=== PATIENT | female | born 1945 | race Caucasian/White ===

== ENCOUNTER 2017-12-25 18:45 | Inpatient (IN) | payer MEDICARE ==
[~2017-12-25] VITALS: Ht 160 cm; Wt 46.0 kg
[~2017-12-25 18:45] MED LIST: ASPI-1197 PO; BISA5TAB12 PO; METH10TA2 PO; MIRT30TA6 PO
[2017-12-25] MEDS ORDERED: HYDROMORPHONE 1 MG/1 ML AMP ONE ×2 (19:38→21:09)
[2017-12-25] MEDS ORDERED: ONDANSETRON HCL MDV 20ML 2 MG/ML VIAL ONE (19:39)
[2017-12-25 19:50] LABS: BASOPHILS % (AUTO) 0.4 % (0.0-5.0); EOSINOPHILS % (AUTO) 0.2 % (0.0-8.0); HEMATOCRIT 34.5 % (36-48); LYMPHOCYTES % (AUTO) 9.7 % (21.0-51.0); MEAN CORPUSCULAR HEMOGLOBIN 31.1 pg (27.0-33.0); MEAN CORPUSCULAR HGB CONC 33.5 g/dL (32.0-36.0); MEAN CORPUSCULAR VOLUME 92.7 fL (79-99); MONOCYTES % (AUTO) 4.6 % (3.0-13.0); NEUTROPHILS % (AUTO) 85.1 % (40.0-77.0); PLATELET COUNT (AUTO) 213 K/uL (130-400); RED BLOOD CELL COUNT(AUTO) 3.72 MIL/uL (4.00-5.50); RED CELL DISTRIBUTION WIDTH 13.3 % (11.0-15.5); WHITE BLOOD COUNT (AUTO) 12.8 K/uL (4.8-10.8)
[2017-12-25 20:12] LABS: CREATININE 0.8 mg/dL (0.5-1.5); INR 0.95 (0.85-1.15); PARTIAL THROMBOPLASTIN TIME 27.2 SEC (26.3-35.5); POTASSIUM 3.4 mmol/L (3.5-5.1)
[2017-12-25 20:25] LABS: ALBUMIN 3.9 g/dL (3.5-5.0); BILIRUBIN,TOTAL 0.4 mg/dL (0.2-1.0); CREATINE KINASE MB 3.7 ng/mL (0.5-3.6); TOTAL PROTEIN, SERUM 7.9 g/dL (6.0-8.3)
[2017-12-25] MEDS ORDERED: LIDOCAINE HCL 2% JELLY 5 ML ONE (21:04)
[2017-12-25 21:50] LABS: APPEARANCE,URINE CLEAR (CLEAR); BILIRUBIN,URINE NEGATIVE (NEGATIVE); COLOR,URINE GREEN (YELLOW); GLUCOSE, URINE (UA) NEGATIVE (NEGATIVE); KETONES,URINE NEGATIVE (NEGATIVE); LEUKOCYTE ESTERASE ,URINE TRACE (NEGATIVE); NITRATE,URINE NEGATIVE (NEGATIVE); OCCULT BLOOD,URINE NEGATIVE (NEGATIVE); PH,URINE 5.5 (5.0-8.0); PROTEIN,URINE TRACE (NEGATIVE); UROBILINOGEN,URINE 0.2 mg/dL (0.2-1.0)
[2017-12-25 22:08] LABS: BACTERIA,URINE Few /HPF (None Seen); MUCUS,URINE Few LPF (None Seen); RBC,URINE 0-1 /HPF (0-1); SQUAMOUS EPITHELIAL CELL,UR Few /HPF (0-2); WBC,URINE 0-1 /HPF (0-1)
[2017-12-25 22:09] LABS: HYALINE CASTS, URINE 0-1 /LPF (0-1 /LPF)
[2017-12-26] MEDS ORDERED: MORPHINE SULFATE 4 MG/1ML SYG ONE ×3 (00:01→07:55)
[2017-12-26 01:05] VITALS: BP 151/81
[2017-12-26] MEDS ORDERED: METH5TAB2 PO (01:49)
[2017-12-26] MEDS ORDERED: MORPHINE SULFATE 2 MG/ML 1ML SYG IVP PRN (03:30)
[2017-12-26 03:58] VITALS: BP 136/72
[2017-12-26 07:28] LABS: BASOPHILS % (AUTO) 0.6 % (0.0-5.0); EOSINOPHILS % (AUTO) 0.6 % (0.0-8.0); HEMATOCRIT 34.5 % (36-48); MEAN CORPUSCULAR HEMOGLOBIN 32.4 pg (27.0-33.0); MEAN CORPUSCULAR HGB CONC 34.9 g/dL (32.0-36.0); MEAN CORPUSCULAR VOLUME 92.9 fL (79-99); MONOCYTES % (AUTO) 6.8 % (3.0-13.0); PLATELET COUNT (AUTO) 219 K/uL (130-400); RED BLOOD CELL COUNT(AUTO) 3.71 MIL/uL (4.00-5.50); RED CELL DISTRIBUTION WIDTH 13.3 % (11.0-15.5)
[2017-12-26 07:40] LABS: CREATININE 0.8 mg/dL (0.5-1.5); POTASSIUM 3.8 mmol/L (3.5-5.1)
[2017-12-26 08:00] VITALS: BP 141/86
[2017-12-26] MEDS ORDERED: PANTOPRAZOLE SODIUM 40 MG TABLET.DR PO SCH (09:00)
[2017-12-26] MEDS ORDERED: HYDROMORPHONE HCL 2 MG/ML VIAL IVP PRN (10:00)
[2017-12-26] MEDS: SODIUM CHLORIDE 0.9% 1000ML 1,000 ML IV SCH ×2 (10:50→22:56)
[2017-12-26] MEDS: HYDROMORPHONE 1 MG/1 ML AMP IVP PRN ×5 (10:50→22:57)
[2017-12-26 12:00] VITALS: BP 133/70
[2017-12-26] MEDS: METHADONE HCL 10 MG TABLET PO SCH ×2 (12:00→21:00)
[2017-12-26 15:56] VITALS: BP 123/71
[2017-12-26 19:31] VITALS: BP 141/87
[2017-12-26] MEDS: ONDANSETRON HCL MDV 20ML 2 MG/ML VIAL IVP PRN (20:02)
[2017-12-26] MEDS: MIRTAZAPINE 15 MG TABLET PO SCH (21:00)
[2017-12-26] MEDS ORDERED: METHADONE HCL 5 MG TABLET PO SCH (21:00)
[2017-12-27] MEDS: PROMETHAZINE HCL 25 MG/ML 1ML AMPULE IM PRN ×3 (02:00→18:00)
[2017-12-27] MEDS: HYDROMORPHONE 1 MG/1 ML AMP IVP PRN ×5 (02:00→15:18)
[2017-12-27 03:24] VITALS: BP 120/78
[2017-12-27 07:06] LABS: HEMATOCRIT 34.3 % (36-48); MEAN CORPUSCULAR HEMOGLOBIN 32.1 pg (27.0-33.0); MEAN CORPUSCULAR HGB CONC 34.4 g/dL (32.0-36.0); MEAN CORPUSCULAR VOLUME 93.3 fL (79-99); PLATELET COUNT (AUTO) 186 K/uL (130-400); RED BLOOD CELL COUNT(AUTO) 3.67 MIL/uL (4.00-5.50); RED CELL DISTRIBUTION WIDTH 13.4 % (11.0-15.5); WHITE BLOOD COUNT (AUTO) 6.9 K/uL (4.8-10.8)
[2017-12-27 07:18] LABS: CREATININE 0.8 mg/dL (0.5-1.5); POTASSIUM 4.2 mmol/L (3.5-5.1)
[2017-12-27 07:34] LABS: BASOPHILS % (MANUAL) 1 % (0-2); EOSINOPHILS % (MANUAL) 1 % (1-6); LYMPHOCYTES % (MANUAL) 15 % (22-44); MAN.DIFF COMMENT-IMPRESSION MANUAL DIFFERENTIAL; MONOCYTES % (MANUAL) 4 % (2-9); PLATELET MORPHOLOGY COMMENT ADEQUATE; SEGMENTED NEUTROPHILS % 79 % (40-70)
[2017-12-27 08:00] VITALS: BP 113/62
[2017-12-27] MEDS: ONDANSETRON HCL MDV 20ML 2 MG/ML VIAL IVP PRN (08:27)
[2017-12-27] MEDS ORDERED: PANTOPRAZOLE SODIUM 40 MG TABLET.DR PO SCH (09:00)
[2017-12-27] MEDS: METHADONE HCL 10 MG TABLET PO SCH ×3 (09:00→20:54)
[2017-12-27] MEDS: FAMOTIDINE/PF 20 MG/2 ML VIAL IV SCH ×2 (10:00→20:55)
[2017-12-27 12:00] VITALS: BP 120/69
[2017-12-27] MEDS: SODIUM CHLORIDE 0.9% 1000ML 1,000 ML IV SCH (13:07)
[2017-12-27 16:00] VITALS: BP 130/64
[2017-12-27 19:50] VITALS: BP 107/66
[2017-12-27] MEDS: MIRTAZAPINE 15 MG TABLET PO SCH (20:54)
[2017-12-27 23:41] VITALS: BP 128/73
[2017-12-28] MEDS: SODIUM CHLORIDE 0.9% 1000ML 1,000 ML IV SCH (02:12)
[2017-12-28 03:15] VITALS: BP 119/67
[2017-12-28 08:00] VITALS: BP 125/72
[2017-12-28] MEDS: METHADONE HCL 10 MG TABLET PO SCH ×2 (09:00→12:17)
[2017-12-28 12:00] VITALS: BP 123/71
[2017-12-28] MEDS: FAMOTIDINE/PF 20 MG/2 ML VIAL IV SCH (12:11)
== END 2017-12-28 17:37 | disposition home or self-care (01) | DRG 389 ==
LOC: EDH 18:45 → EDHIP 22:18 → 3DH 12-26 00:01
PROVIDERS: ADMIT Family Medicine; ATTEND Family Medicine
PROC: 0DH673Z Insertion of Infusion Device into Stomach, Via Natural or Artificial Opening (ICD-10-PCS; principal; 2017-12-26)
DX: K56.609 Unspecified intestinal obstruction, unspecified as to partial versus complete obstruction (principal); E44.1 Mild protein-calorie malnutrition; Z68.1 Body mass index [BMI] 19.9 or less, adult; E86.0 Dehydration; G89.4 Chronic pain syndrome; Z88.0 Allergy status to penicillin; Z91.040 Latex allergy status
CPT/HCPCS: 36415; 71045; 74021; 74176; 80048; 80053; 81001; 82150; 82550; 82553; 84484; 85025; 85610; 85730; 93005; C9113; J1170; J2270; J2550; J3490; J7030

== ENCOUNTER 2021-08-23 16:13 | Inpatient (IN) | payer MEDICARE ==
[~2021-08-23] VITALS: Ht 157.5 cm; Wt 39.9 kg
[~2021-08-23 16:13] MED LIST changes: -ASPI-1197 PO; -BISA5TAB12 PO; +LUBI8CAP PO; +METH-822 PO; -METH10TA2 PO; -MIRT30TA6 PO; +TEMA15CA PO
[2021-08-23 20:26] LABS: BASOPHILS % (AUTO) 1.3 % (0.0-5.0); EOSINOPHILS % (AUTO) 1.8 % (0.0-8.0); HEMATOCRIT 40.9 % (36-48); LYMPHOCYTES % (AUTO) 37.2 % (21.0-51.0); MEAN CORPUSCULAR HGB CONC 31.8 g/dL (32.0-36.0); MEAN CORPUSCULAR VOLUME 94.2 fL (79-99); MONOCYTES % (AUTO) 7.6 % (3.0-13.0); NEUTROPHILS % (AUTO) 51.8 % (40.0-77.0); PLATELET COUNT (AUTO) 248 K/uL (130-400); RED BLOOD CELL COUNT(AUTO) 4.34 MIL/uL (4.00-5.50); RED CELL DISTRIBUTION WIDTH 12.1 % (11.0-15.5); WHITE BLOOD COUNT (AUTO) 6.7 K/uL (4.8-10.8)
[2021-08-23 20:33] LABS: CREATININE 0.7 mg/dL (0.5-1.5); POTASSIUM 5.7 mmol/L (3.5-5.1)
[2021-08-23] MEDS ORDERED: 0.9%NACL 1000ML 1,000 ML IV SCH (22:30)
[2021-08-23] MEDS ORDERED: FENTANYL CITRATE PF 50 MCG/1 ML 2ML VIAL IVP ONE (22:30)
[2021-08-23] MEDS ORDERED: ONDANSETRON 4MG TABLET PO PRN (23:00)
[2021-08-23] MEDS ORDERED: ACETAMINOPHEN 325 MG TAB PO PRN ×2 (23:00)
[2021-08-24 01:20] VITALS: BP 121/73
[2021-08-24] MEDS ORDERED: METH-822 PO (01:50)
[2021-08-24] MEDS ORDERED: ONDA-104 PO (01:50)
[2021-08-24] MEDS: MORPHINE 2 MG SYG IVP PRN ×4 (02:11→23:44)
[2021-08-24 04:24] VITALS: BP 131/70
[2021-08-24] MEDS ORDERED: KETOROLAC 30MG VIAL (30MG/ML) ONE (06:11)
[2021-08-24] MEDS ORDERED: KETOROLAC 30MG VIAL (30MG/ML) IM SCH (06:30)
[2021-08-24 08:30] VITALS: BP 122/64
[2021-08-24 11:35] VITALS: BP 118/59
[2021-08-24] MEDS: ENOXAPARIN SODIUM 30 MG/0.3 ML SQ SCH (12:39)
[2021-08-24 16:00] VITALS: BP 120/70
[2021-08-24 20:00] VITALS: BP 123/70
[2021-08-25] VITALS (7 sets, daily range): BP systolic 112–139; BP diastolic 64–74
[2021-08-25] MEDS: ENOXAPARIN SODIUM 30 MG/0.3 ML SQ SCH (08:47)
[2021-08-25] MEDS: MORPHINE 2 MG SYG IVP PRN ×2 (08:47→18:50)
[2021-08-26] MEDS: MORPHINE 2 MG SYG IVP PRN ×2 (01:54→09:53)
[2021-08-26 03:47] VITALS: BP 114/63
[2021-08-26 04:10] LABS: HEMATOCRIT 33.1 % (36-48); MEAN CORPUSCULAR HEMOGLOBIN 30.4 pg (27.0-33.0); MEAN CORPUSCULAR VOLUME 94.8 fL (79-99); RED BLOOD CELL COUNT(AUTO) 3.49 MIL/uL (4.00-5.50); WHITE BLOOD COUNT (AUTO) 4.8 K/uL (4.8-10.8)
[2021-08-26 04:36] LABS: CREATININE 0.8 mg/dL (0.5-1.5); MAGNESIUM 1.9 mg/dL (1.80-2.40); POTASSIUM 4.7 mmol/L (3.5-5.1)
[2021-08-26 07:44] VITALS: BP 132/71
[2021-08-26] MEDS: ENOXAPARIN SODIUM 30 MG/0.3 ML SQ SCH (09:51)
[2021-08-26 10:57] VITALS: BP 103/60
[2021-08-26 15:38] VITALS: BP 110/58
== END 2021-08-26 20:30 | disposition home or self-care (01) | DRG 563 ==
LOC: EDH 16:13 → EDHIP 22:40 → 4AH 08-24 00:59
PROVIDERS: ADMIT Internal Medicine Infectious Disease; ATTEND Internal Medicine Infectious Disease
PROC: 2W3MX1Z Immobilization of Left Lower Extremity using Splint (ICD-10-PCS; principal; 2021-08-24)
DX: S92.402A Displaced unspecified fracture of left great toe, initial encounter for closed fracture (principal); S32.592A Other specified fracture of left pubis, initial encounter for closed fracture; S52.002A Unspecified fracture of upper end of left ulna, initial encounter for closed fracture; M19.90 Unspecified osteoarthritis, unspecified site; E87.5 Hyperkalemia; R29.6 Repeated falls; Z96.653 Presence of artificial knee joint, bilateral; Z96.642 Presence of left artificial hip joint; Z60.2 Problems related to living alone; R53.81 Other malaise; G89.29 Other chronic pain; W01.0XXA Fall on same level from slipping, tripping and stumbling without subsequent striking against object, initial encounter; Y93.89 Activity, other specified; Y92.89 Other specified places as the place of occurrence of the external cause; Y99.8 Other external cause status; Z88.0 Allergy status to penicillin; Z91.040 Latex allergy status; Z98.82 Breast implant status; Z85.89 Personal history of malignant neoplasm of other organs and systems
CPT/HCPCS: 36415; 72131; 73070; 73660; 74176; 80048; 83735; 85025; 85027; 97039; G0378; J1650; J1885; J3010; Q0162

== ENCOUNTER 2021-12-30 18:16 | Inpatient (IN) | payer MEDICARE ==
[~2021-12-30] VITALS: Ht 154.9 cm; Wt 38.4 kg
[~2021-12-30 18:16] MED LIST changes: -LUBI8CAP PO; +ONDA-104 PO; -TEMA15CA PO
[2021-12-30 18:38] LABS: BASOPHILS % (AUTO) 0.4 % (0.0-5.0); HEMATOCRIT 35.7 % (36-48); LYMPHOCYTES % (AUTO) 9.9 % (21.0-51.0); MEAN CORPUSCULAR HEMOGLOBIN 29.9 pg (27.0-33.0); MEAN CORPUSCULAR HGB CONC 33.1 g/dL (32.0-36.0); MEAN CORPUSCULAR VOLUME 90.6 fL (79-99); MONOCYTES % (AUTO) 6.2 % (3.0-13.0); NEUTROPHILS % (AUTO) 83.1 % (40.0-77.0); PLATELET COUNT (AUTO) 194 K/uL (130-400); RED BLOOD CELL COUNT(AUTO) 3.94 MIL/uL (4.00-5.50); RED CELL DISTRIBUTION WIDTH 13.2 % (11.0-15.5); WHITE BLOOD COUNT (AUTO) 11.9 K/uL (4.8-10.8)
[2021-12-30 18:57] LABS: CREATININE 0.8 mg/dL (0.5-1.5); POTASSIUM 3.9 mmol/L (3.5-5.1)
[2021-12-30 19:01] LABS: ALBUMIN 4.2 g/dL (3.5-5.0); BILIRUBIN,TOTAL 1.3 mg/dL (0.2-1.0); TOTAL PROTEIN, SERUM 7.7 g/dL (6.0-8.3)
[2021-12-30] MEDS ORDERED: BISACODYL 10 MG SUPP.RECT RC ONE (20:30)
[2021-12-30] MEDS ORDERED: MORPHINE 4 MG SYG IM ONE (20:30)
[2021-12-30 22:28] LABS: APPEARANCE,URINE Turbid (CLEAR); BILIRUBIN,URINE Negative (NEGATIVE); COLOR,URINE Yellow (YELLOW); GLUCOSE, URINE (UA) Negative (NEGATIVE); KETONES,URINE Negative (NEGATIVE); LEUKOCYTE ESTERASE ,URINE Large (NEGATIVE); NITRATE,URINE Negative (NEGATIVE); OCCULT BLOOD,URINE Moderate (NEGATIVE); PROTEIN,URINE POS 2+ mg/dL (NEGATIVE)
[2021-12-30 22:56] LABS: AMORPHOUS SEDIMENT,UR Many /LPF (None Seen); BACTERIA,URINE Moderate /HPF (None Seen); CALCIUM OXALATE CRYSTALS,UR Few /LPF (None Seen); MUCUS,URINE Rare LPF (None Seen); RBC,URINE 0-1 /HPF (0-1); RENAL EPITHELIAL CELLS,URINE Few /HPF (None Seen); SQUAMOUS EPITHELIAL CELL,UR Few /HPF (0-2); YEAST,URINE BUDDING Few /HPF (None Seen)
[2021-12-30] MEDS ORDERED: MORPHINE 2 MG SYG IVP ONE (23:00)
[2021-12-31] MEDS ORDERED: CEFTRIAXONE 1G VIAL IVP ONE
[2021-12-31] MEDS ORDERED: LEVOFLOXACIN 500 MG/D5W 100 ML 100 ML IV SCH
[2021-12-31] MEDS: LACTULOSE 20 GM/30 ML UDCUP PO SCH ×5 (00:30→23:58)
[2021-12-31] MEDS ORDERED: ONDANSETRON 4MG INJ IVP PRN (00:30)
[2021-12-31] MEDS ORDERED: ACETAMINOPHEN 325 MG TAB PO PRN (00:30)
[2021-12-31] MEDS ORDERED: PHARMACY COMMUNICATION MISC SCH ×3 (01:00→07:30)
[2021-12-31] MEDS: CEFTRIAXONE 1G VIAL IVP SCH ×2 (05:23→23:58)
[2021-12-31] MEDS ORDERED: NAPR220C15 PO (06:22)
[2021-12-31 08:00] VITALS: BP 89/56
[2021-12-31] MEDS ORDERED: NAPROXEN 250 MG TAB PO PRN (08:00)
[2021-12-31] MEDS: ENOXAPARIN SODIUM 30 MG/0.3 ML SQ SCH (08:37)
[2021-12-31 11:30] VITALS: BP 114/63
[2021-12-31] MEDS: MORPHINE 2 MG SYG IVP PRN ×2 (12:28→18:16)
[2021-12-31 15:30] VITALS: BP 117/63
[2021-12-31 19:20] VITALS: BP 102/53
[2021-12-31 23:28] VITALS: BP 107/60
[2022-01-01] MEDS: MORPHINE 2 MG SYG IVP PRN ×3 (00:03→12:37)
[2022-01-01 04:59] VITALS: BP 126/69
[2022-01-01 05:14] LABS: BASOPHILS % (AUTO) 0.8 % (0.0-5.0); EOSINOPHILS % (AUTO) 0.6 % (0.0-8.0); HEMATOCRIT 35.3 % (36-48); LYMPHOCYTES % (AUTO) 38.3 % (21.0-51.0); MEAN CORPUSCULAR HEMOGLOBIN 29.7 pg (27.0-33.0); MEAN CORPUSCULAR HGB CONC 32.9 g/dL (32.0-36.0); MEAN CORPUSCULAR VOLUME 90.5 fL (79-99); MONOCYTES % (AUTO) 6.7 % (3.0-13.0); NEUTROPHILS % (AUTO) 53.4 % (40.0-77.0); PLATELET COUNT (AUTO) 153 K/uL (130-400); RED CELL DISTRIBUTION WIDTH 13.4 % (11.0-15.5); WHITE BLOOD COUNT (AUTO) 5.1 K/uL (4.8-10.8)
[2022-01-01 05:25] LABS: CREATININE 0.7 mg/dL (0.5-1.5); MAGNESIUM 1.9 mg/dL (1.80-2.40); POTASSIUM 3.5 mmol/L (3.5-5.1)
[2022-01-01] MEDS: LACTULOSE 20 GM/30 ML UDCUP PO SCH ×2 (06:00→12:36)
[2022-01-01 08:00] VITALS: BP 114/60
[2022-01-01] MEDS: ENOXAPARIN SODIUM 30 MG/0.3 ML SQ SCH ×2 (09:00→10:40)
[2022-01-01 12:00] VITALS: BP 105/72
[2022-01-01 16:00] VITALS: BP 103/67
== END 2022-01-02 01:54 | disposition home or self-care (01) | DRG 690 ==
LOC: EDH 18:16 → OBSVTOIN 12-31 00:09 → EDHIP 12-31 00:09 → 3CH 12-31 05:28
PROVIDERS: ADMIT Internal Medicine Infectious Disease; ATTEND Internal Medicine Infectious Disease
DX: N39.0 Urinary tract infection, site not specified (principal); K59.00 Constipation, unspecified; E86.0 Dehydration; G89.29 Other chronic pain; M19.90 Unspecified osteoarthritis, unspecified site; Z98.82 Breast implant status; Z96.643 Presence of artificial hip joint, bilateral; B95.1 Streptococcus, group B, as the cause of diseases classified elsewhere; R54 Age-related physical debility; Z88.0 Allergy status to penicillin; Z91.040 Latex allergy status
CPT/HCPCS: 36415; 74176; 80048; 80053; 81001; 82270; 83690; 83735; 85025; 87088; 93971; G0378; J0696; J1650; J1956; J2270

== ENCOUNTER → 2023-02-10 | Outpatient (CLI) | payer MEDICARE ==
[~2023-02-10] MED LIST changes: +NAPR220C15 PO; -ONDA-104 PO
[2023-02-10 13:58] LABS: CREATININE 0.7 mg/dL (0.5-1.5)
== END | disposition home or self-care (01) ==
LOC: LAB 12:03
PROVIDERS: ATTEND Internal Medicine
DX: R12 Heartburn (principal); R10.9 Unspecified abdominal pain
CPT/HCPCS: 82565; 84520

== ENCOUNTER → 2023-08-07 | Outpatient (CLI) | payer MEDICARE | END | disposition home or self-care (01) | LOC: RAH 13:19 | PROVIDERS: ATTEND Internal Medicine Cardiovascular Disease | DX: I08.0 Rheumatic disorders of both mitral and aortic valves (principal); R01.1 Cardiac murmur, unspecified | CPT/HCPCS: 93306 ==

== ENCOUNTER 2024-07-16 18:20 | Emergency (ER) | payer MEDICARE ==
[~2024-07-16] VITALS: Ht 160 cm; Wt 49.9 kg
[~2024-07-16 18:20] MED LIST changes: +CYCL5TAB PO; +LEVO50TA11 PO; +METH10 PO; +ONDA-104 PO; +OXYB10TA30 PO
[2024-07-16 23:36] VITALS: BP 150/80; PULSE 87; RESP 20; TEMP 98.6; O2SAT 92
== END 2024-07-17 01:08 | disposition home or self-care (01) ==
LOC: EDH 18:20
DX: S00.03XA Contusion of scalp, initial encounter (principal); Z79.899 Other long term (current) drug therapy; Z79.890 Hormone replacement therapy; Z88.0 Allergy status to penicillin; W18.39XA Other fall on same level, initial encounter; Y93.89 Activity, other specified; Y92.89 Other specified places as the place of occurrence of the external cause; Y99.8 Other external cause status
CPT/HCPCS: 70450; 72125

== ENCOUNTER 2025-08-04 13:03 | Inpatient (IN) | payer MEDICARE ==
[~2025-08-04] VITALS: Ht 152.4 cm; Wt 32.7 kg
[~2025-08-04 13:03] MED LIST changes: -CYCL5TAB PO; +CYCL5TAB3 PO
--- NOTE | 2025-08-04 13:24 | NUR ---
EMS PUT PATIENT IN ER13 AND LEFT WITHOUT GIVING REPORT. PATIENT CARE ASSUMED AT THIS TIME.
[2025-08-04 13:30] LABS: IMMATURE GRANULOCYTE ABSOLUTE 0.02 K/uL (0-1); NUCLEATED RED BLOOD CELLS 0.0 % (0.0-0.19); PLATELET COUNT (AUTO) 185 K/uL (130-400); RED BLOOD CELL COUNT(AUTO) 3.92 MIL/uL (4.00-5.50); RED CELL DISTRIBUTION WIDTH 12.5 % (11.0-15.5); WHITE BLOOD COUNT (AUTO) 10.8 K/uL (4.8-10.8)
[2025-08-04 13:49] LABS: CREATININE 0.6 mg/dL (0.5-1.0); GLOMERULAR FILTR. RATE CALC 91.0 mL/min (>90); GLUCOSE,RANDOM 113.0 mg/dL (70-105); SODIUM SERUM 141.0 mmol/L (136-145); UREA NITROGEN, BLOOD 22.0 mg/dL (7-18)
--- NOTE | 2025-08-04 14:02 | ERN ---
General Chief Complaint: Abdominal Pain Stated Complaint: ABDOMINAL PAIN Time Seen by MD: 13:05 Source: patient History of Present Illness Initial Comments This is a 79-year-old female patient with past medical history of pneumonia, small bowel obstruction, and osteoarthritis, presented to the Emergency Room with 1-day history of nausea, vomiting, and abdominal pain. Pain localized to the lower quadrant. The patient claims she had multiple episodes of emesis yesterday. No fever or chills. The patient has history of recurrent small bowel obstruction. Allergies: Coded Allergies: latex (Unverified Allergy, Unknown, RASH, 03/27/15) penicillin (Unverified Allergy, Unknown, RASH, 03/27/15) Home Meds Reported Medications Cyclobenzaprine HCl (Cyclobenzaprine HCl) 5 Mg Tablet, 1 TAB PO HS 07/12/24 Oxybutynin Chloride (Oxybutynin Chloride ER) 10 Mg Tab.er.24, 1 TAB PO DAILY for bladder control 07/12/24 Levothyroxine Sodium (Levothyroxine Sodium) 50 Mcg Tablet, 1 TAB PO DAILY 07/12/24 Ondansetron HCl (Ondansetron HCl) 4 Mg Tablet, 2 TAB PO BID 07/12/24 Methadone HCl (Dolophine) 10 Mg Tab, 1 TAB PO Q4H for pain 07/12/24 Naproxen Sodium (Aleve) 220 Mg Capsule, 220 MG PO Q4HPRN PRN for PAIN LEVEL 1 TO 3, CAP 12/31/21 Methadone HCl (Methadone HCl) 10 Mg Tablet, 20 MG PO TID, TAB 08/24/21 Past Medical History Past Medical History: Other Medical History Other: BOWEL OBSTRUCTIONS Past Surgical History: Other Surgical History Other: ABD PAIN Social History Social History: Negative, Lives alone Female( History) History: Not Applicable ROS Dictation CONSTITUTIONAL: NO CHILLS, NO FEVER, NO WEAKNESS, NO DIAPHORESIS, NO MALAISE. HEAD/FACE: NO SIGNS OF TRAUMA. EENT: NO EYE PAIN, NO BLURRED VISION, NO TEARING, NO DOUBLE VISION, NO EAR PAIN, NO EAR DISCHARGE, NO NOSE PAIN, NO NASAL CONGESTION, NO THROAT PAIN, NO THROAT SWELLING, NO MOUTH PAIN. RESPIRATORY: NO COUGH, NO ORTHOPNEA, NO SOB, NO STRIDOR, NO WHEEZING. CARDIOVASCULAR: NO CHEST PAIN, NO EDEMA, NO PALPITATIONS, NO SYNCOPE. GASTROINTESTINAL/ABDOMINAL: ABDOMINAL PAIN, CONSTIPATION, NO DIARRHEA, NO NAUSEA, NO VOMITING. GENITOURINARY: NO ABNORMAL DISCHARGE, NO DYSURIA, NO FREQUENT URINATION, NO HEMATURIA. NO COMPLAINTS OF PAIN IN THE GENITALS. MUSCULOSKELETAL: NO BACK PAIN, NO GOUT, NO JOINT PAIN, NO JOINT SWELLING, NO MUSCLE PAIN, NO MUSCLE STIFFNESS, NO NECK PAIN. INTEGUMENTARY: NO CHANGE IN COLOR, NO CHANGE IN HAIR/NAILS, NO DRYNESS, NO LESION, NO LUMPS, NO RASH. NEUROLOGICAL/PSYCH: NO ANXIETY, NOT DEPRESSED, NO EMOTIONAL PROBLEM, NO HEADACHE, NO NUMBNESS, NO PRE-EXISTING DEFICIT, NO HISTORY OF SEIZURES, NO TREMORS, NO WEAKNESS. HEMATOLOGIC/LYMPHATIC: NOT ANEMIC, NO HISTORY OF BLOOD CLOTS, NO APPARENT BLEEDING, NO BRUISING, GLANDS NOT SWOLLEN. ALL SYSTEMS NEGATIVE, EXCEPT NOTED. Physical Exam Physical Exam Dictation VITAL SIGNS: REVIEWED. GENERAL APPEARANCE: ALERT, ORIENTED X3, NO ACUTE DISTRESS, OBESE. HEAD AND FACE: NON-TRAUMATIC. EYES: PERRL, PINK CONJUNCTIVAS, EYELID NO TRAUMA, ANTERIOR CHAMBER CLEAR. EARS: PINNAS INTACT AND NO SIGNS OF TRAUMA OR ERYTHEMA. EAR CANALS CLEAR AND NO DISCHARGE. TMS NO ERYTHEMA. NOSE: NO DISCHARGE, NO BLEEDING. OROPHARYNX: MOUTH NORMAL, TEETH NO CARIES, TONGUE PINK. PHARYNX CLEAR, NO ERYTHEMA. TONSILS NO EXUDATES, NO ABSCESSES NOTED. MUCOUS MEMBRANE MOIST. NECK: SUPPLE, NON-TENDER, NO THYROMEGALY, NO MASSES, NO JVD, NO BRUITS. BREAST: DEFERRED. CHEST: NO TENDERNESS, NO CREPITUS, NO PARADOXICAL MOVEMENT, NO RETRACTIONS. LUNGS: CLEAR, WELL-VENTILATED, SYMMETRIC, NO RALES, NO WHEEZING, NO RHONCHI, NO STRIDOR, GOOD BREATH SOUNDS BILATERALLY. HEART: REGULAR RATE, REGULAR RHYTHM, NO MURMUR, NO GALLOPS. VASCULAR: NO PERIPHERAL EDEMA. ABDOMEN: SOFT, POSITIVE BOWEL SOUNDS, DISTENDED, NO GUARDING, NONTENDER, NO REBO UND, NO MASSES NO HEPATOMEGALY, NO SPLENOMEGALY, NO NUNN'S SIGN, NO HERNIAS. RECTAL: DEFERRED. GENITAL: DEFERRED. NEUROLOGICAL: NORMAL SPEECH, GROSS MOTOR FUNCTION INTACT, GROSS SENSORY FUNCTION INTACT. MUSCULOSKELETAL: NECK NONTENDER, FULL RANGE OF MOTION, BACK NONTENDER, FULL RANGE OF MOTION. EXTREMITIES: NONTENDER, FULL RANGE OF MOTION. SKIN: COLOR PINK, DRY, NO TURGOR, NO RASH, NO LACERATIONS, NO ABRASIONS, NO CONTUSIONS. LYMPHATICS: DEFERRED. Results Laboratory and Microbiology Lab and Micro Result Laboratory Tests Test 08/04/25 13:23 White Blood Count 10.8 K/uL (4.8-10.8) Red Blood Count 3.92 MIL/uL (4.00-5.50) L Hemoglobin 12.3 g/dL (12.0-16.0) Hematocrit 38.1 % (36-48) Mean Corpuscular Volume 97.2 fL (79-99) Mean Corpuscular Hemoglobin 31.4 pg (27.0-33.0) Mean Corpuscular Hemoglobin Concent 32.3 g/dL (32.0-36.0) Red Cell Distribution Width 12.5 % (11.0-15.5) Platelet Count 185 K/uL (130-400) Mean Platelet Volume 10.7 fL (7.5-10.5) H Immature Granulocyte % (Auto) 0.2 % (0-1) Neutrophils (%) (Auto) 81.4 % (40.0-77.0) H Lymphocytes (%) (Auto) 12.9 % (21.0-51.0) L Monocytes (%) (Auto) 4.9 % (3.0-13.0) Eosinophils (%) (Auto) 0.3 % (0.0-8.0) Basophils (%) (Auto) 0.3 % (0.0-5.0) Neutrophils # (Auto) 8.8 K/uL (1.8-7.7) H Lymphocytes # (Auto) 1.4 K/uL (1.0-4.8) Monocytes # (Auto) 0.5 K/uL (0.1-1.0) Eosinophils # (Auto) 0.03 K/uL (0.00-0.70) Basophils # (Auto) 0.03 K/uL (0.00-0.20) Absolute Immature Granulocyte (auto 0.02 K/uL (0-1) Nucleated Red Blood Cells 0.0 % (0.0-0.19) Sodium Level 141 mmol/L (136-145) Potassium Level 3.3 mmol/L (3.5-5.1) L Chloride Level 98 mmol/L (101-111) L Carbon Dioxide Level 36 mmol/L (21-32) H Blood Urea Nitrogen 22 mg/dL (7-18) H Creatinine 0.6 mg/dL (0.5-1.0) Glomerular Filtration Rate Calc 91 mL/min (>90) Random Glucose 113 mg/dL (70-105) H Total Calcium 9.5 mg/dL (8.5-10.1) Labs Reviewed?: Yes EKG/XRAY/US/CT/MRI X-RAY Comment KUB- BOWEL OBSTRUCTION MDM MDM: DIFFERENTIAL DIAGNOSIS:SBO, RATIONALE: TESTS CONSIDERED AND ORDERED SECONDARY TO SHARED DECISION MAKING INCLUDE: PREVIOUS OUTSIDE RECORDS REVIEWED: OLD ER VISITS. RISK OF COMPLICATION AND/OR MORBIDITY OR MORTALITY OF PATIENT MANAGEMENT: NONE MEDICATIONS-PER MEDICATION RECONCILIATION NEED FOR HOSPITALIZATION: PATIENT DOES NOT MEET CRITERIA FOR HOSPITALIZATION. NEED FOR EMERGENCY MAJOR/MINOR SURGERY: NO THERE ARE NO SOCIAL CONCERNS WITH THIS PATIENT. PRESCRIPTION DRUG MANAGEMENT PRESCRIPTIONS WILL INCLUDE SYMPTOMATIC CARE PATIENT'S PRIOR EXTERNAL MEDICAL RECORDS FROM OTHER ER VISITS WERE REVIEWED BY ME INDICATED. PRIOR TESTING AND RESULTS FROM PREVIOUS VISITS WERE REVIEWED. PRIOR TESTS WERE TAKEN INTO ACCOUNT WITH MEDICAL DECISION MAKING AND RESOURCE UTILIZATION, INDEPENDENT HISTORIAN/HISTORIANS WERE USED TO OBTAIN COMPLETE MEDICAL HISTORY. I INDEPENDENTLY INTERPRETED THE TEST THAT WERE PERFORMED, RESULTS WERE REVIEWED BY ME AND CONSIDERED FINDINGS ON RADIOLOGY IF ORDERED. MEDICAL MANAGEMENT AND EXAMINATION INTERPRETATION DISCUSSIONS WERE HAD BY ME WITH OTHER QUALIFIED HEALTHCARE PROFESSIONALS INDICATED FOR THE PATIENT'S CARE.PT WILL BE ADMITTED UNDER THE CARE OF DR NAJERA ED Course Orders Procedure Category Date Status Time Cbc With Differential LAB 08/04/25 Complete 13:07 Basic Metabolic Panel LAB 08/04/25 Complete 13:07 Abd 1vw RAD 08/04/25 Taken 13:07 Vital Signs Date Time Temp Pulse Resp B/P (MAP) Pulse Ox O2 Delivery O2 Flow Rate FiO2 08/04/25 13:25 98.1 83 20 142/71 98 Room Air* 0 21 08/04/25 13:05 98.1 97 20 174/108 98 Room Air DX & DISP Disposition: Inpatient Decision to Admit Time: 14:11 Departure Impression: Primary Impression: SBO (small bowel obstruction) Condition: Stable Referrals: ALEE SPANGLER MD (PCP) SHIRA KESSLER MD Aug 04, 2025 14:02
--- NOTE | 2025-08-04 14:20 | NUR ---
DR BUTTERFIELD AT BEDSIDE FOR EVALUATION. ORDERS RECEIVED AND TRANSCRIBED.
--- NOTE | 2025-08-04 14:21 | HMCIMG ---
EXAM: CR Abdomen, 2 View. CLINICAL HISTORY: bowel obstruction COMPARISON: None provided. FINDINGS: Abundant colonic fecal matter may reflect constipation. Dilated air-filled loops of small bowel measuring up to 5.1 cm may reflect an obstruction or ileus. Recommend CT imaging for further evaluation. IMPRESSION: 1. Dilated small bowel loops up to 5.1 cm, possibly reflecting obstruction or ileus. 2. CT imaging recommended for further evaluation. /[place]
[2025-08-04] MEDS: DEXTROSE 5 % AND 0.9 % NACL 1,000 ML IV SCH (14:43)
--- NOTE | 2025-08-04 14:51 | NUR ---
GEN SURG CONSULT: SPOKE WITH DR LOUIS ON THE PHONE FOR CONSULT.
--- NOTE | 2025-08-04 14:58 | NUR ---
PATIENT REFUSES POTASSIUM: PATIENT EDUCATED OF HER LOW POTASSIUM 3.3 AND ASSOCIATED RISK. PATIENT DECLINES IV POTASSIUM REPLACEMENT PER HYPOKALEIA PROTOCOL. PATIENT EDUCATED ON RISK OF ABNORMAL POTASSIUM LEVELS AND VERBALIZES UNDERSTANDING AND ACCEPTANCE OF ASSOCIATED RISK. REFUSAL OF TREATMENT FORM SIGNED BY PATIENT, WITNESSED BY RN, AND PLACED IN PATIENT'S CHART.
--- NOTE | 2025-08-04 15:29 | NUR ---
REPORT GIVEN TO RENEE GRIFFITH AT 1925
[2025-08-04 15:45] VITALS: O2SAT 95
--- NOTE | 2025-08-04 15:45 | NUR ---
received er via stretcher verbal responsive ivf's patent serafin bed with in reach oriented to rm
--- NOTE | 2025-08-04 15:47 | NUR ---
PATIENT TRANSPORTED TO 420
[2025-08-04 16:00] VITALS: BP_SYST 156; BP_SYST 79; BP_DIAS 79; PULSE 67; RESP 16; TEMP 98.1; O2SAT 93
--- NOTE | 2025-08-04 17:51 | CONS ---
GENERAL SURGERY CONSULTATION NOTE DATE OF CONSULTATION: Aug 04, 2025 TIME OF CONSULTATION: 17:51 CONSULTING SERVICE: Heriberto Infante MD REQUESTING PHYSICAIN: [ ] REASON FOR CONSULTATION: [ ] Abdominal pain Bowel obstruction HISTORY OF PRESENT ILLNESS: [ ] 79-year-old lady who presented with abdominal pain nausea and vomiting She says she has been having due for the past few days She has been dealing with recurrent small-bowel obstruction for years now He said this is a 20 at admission for the same problem I last bowel movement was three days prior PAST MEDICAL HISTORY: [ ] PAST MEDICAL HISTORY: * Recurrent small bowel obstruction. * Pneumonia. * Osteoarthritis. * Left radial fracture. PAST SURGICAL HISTORY: * Exploratory laparotomy. * Colon resection. * Bilateral total knee arthroplasty. * Left radial fracture repair. [ ] FAMILY HISTORY: [ ] No family history of hypertension or diabetes SOCIAL HISTORY: [ ] No smoking No alcohol Current Medications Medications (Trade) Dose Ordered Sig/Melanie Route Start Time Stop Time Status Last Admin Dose Admin Dextrose/Sodium Chloride 1,000 ml @ 75 mls/hr [id number] IV 08/04/25 14:30 09/03/25 14:29 08/04/25 14:43 75 MLS/HR Enoxaparin Sodium (Lovenox) 40 mg DAILY SQ 08/05/25 09:00 09/04/25 08:59 Allergies: Coded Allergies: latex (Unverified Allergy, Unknown, RASH, 03/27/15) penicillin (Unverified Allergy, Unknown, RASH, 03/27/15) REVIEW OF SYSTEMS: SERVICE PERSON: [Denies headaches or blurring of vision.] RESP: [No cough, chest pain or SOB.] CVS: [No palpitaions.] GI: [abdominal pain with nausea and vomiting, there is constipation SAL: [No dysuria or hematuria.] Musculoskeletal: [No swelling or joint pain.] BACK: [No pain or swelling.] All other systems are reviewed and essentially negative pertinent positives in HPI. PHYSICAL EXAMINATION: GENERAL: [Patient is lying comfortably in bed, not in any obvious distress.] Elderly frail lady HEAD: [Normal with no signs of head trauma.] EYES: [Not pale not jaundiced afebrile to touch.] ENT: [ Normal.] NECK: [Supple,no tenderness,no lymphadenopathy,no masses,no thyromegaly ,no bruits, no JVD.] LUNGS: [Clear breath sounds bilaterally. No wheezes, rales, or rhonchi.] HEART: [Regular rate and rhythm. Normal S1 and S2, without murmurs, rub or gallop.] ABD: [Bowel sounds present,soft, nontender flat r, no masses, no organomegaly.] : [Normal, no suprapubic tenderness.] LYMPH: [No lymphadenopathy noted.] EXT: [ Warm soft, non tender.] SKIN: [ No rashes or lesions.] NEURO: [ Awake Alert and oriented x3.] Vital Signs (last 8hr) Date Time Temp Pulse Resp B/P (MAP) Pulse Ox O2 Delivery O2 Flow Rate FiO2 08/04/25 15:18 98.1 69 17 145/87 99 Room Air* 0 21 08/04/25 13:25 98.1 83 20 142/71 98 Room Air* 0 21 08/04/25 13:05 98.1 97 20 174/108 98 Room Air LABORATORY: [ ] Hematology Labs: Test 08/04/25 13:23 Range/Units White Blood Count 10.8 4.8-10.8 K/uL Red Blood Count 3.92 L 4.00-5.50 MIL/uL Hemoglobin 12.3 12.0-16.0 g/dL Hematocrit 38.1 36-48 % Mean Corpuscular Volume 97.2 79-99 fL Mean Corpuscular Hemoglobin 31.4 27.0-33.0 pg Mean Corpuscular Hemoglobin Concent 32.3 32.0-36.0 g/dL Red Cell Distribution Width 12.5 11.0-15.5 % Platelet Count 185 130-400 K/uL Mean Platelet Volume 10.7 H 7.5-10.5 fL Immature Granulocyte % (Auto) 0.2 0-1 % Neutrophils (%) (Auto) 81.4 H 40.0-77.0 % Lymphocytes (%) (Auto) 12.9 L 21.0-51.0 % Monocytes (%) (Auto) 4.9 3.0-13.0 % Eosinophils (%) (Auto) 0.3 0.0-8.0 % Basophils (%) (Auto) 0.3 0.0-5.0 % Neutrophils # (Auto) 8.8 H 1.8-7.7 K/uL Lymphocytes # (Auto) 1.4 1.0-4.8 K/uL Monocytes # (Auto) 0.5 0.1-1.0 K/uL Eosinophils # (Auto) 0.03 0.00-0.70 K/uL Basophils # (Auto) 0.03 0.00-0.20 K/uL Absolute Immature Granulocyte (auto 0.02 0-1 K/uL Nucleated Red Blood Cells 0.0 0.0-0.19 % Chemistry Labs: Test 08/04/25 13:23 Range/Units Sodium Level 141 136-145 mmol/L Potassium Level 3.3 L 3.5-5.1 mmol/L Chloride Level 98 L 101-111 mmol/L Carbon Dioxide Level 36 H 21-32 mmol/L Blood Urea Nitrogen 22 H 7-18 mg/dL Creatinine 0.6 0.5-1.0 mg/dL Glomerular Filtration Rate Calc 91 >90 mL/min Random Glucose 113 H 70-105 mg/dL Total Calcium 9.5 8.5-10.1 mg/dL DIAGNOSTICS / RADIOLOGY: [Copy/Paste Echos/Imaging Report here] ASSESSMENT: [] Abdominal pain Recurrent SBO Constipation PLAN: [] NPO/IVF/IV ANTIOBIOTICS Small-bowel series for further evaluation HERIBERTO INFANTE MD Aug 04, 2025 17:51
[2025-08-04 20:00] VITALS: BP 141/75; PULSE 72; RESP 18; TEMP 78; O2SAT 99
[2025-08-05] VITALS (10 sets, daily range): BP systolic 121–153; BP diastolic 53–79; PULSE 50–65; RESP 17–19; TEMP 97.7–98.1; O2SAT 95–97
--- NOTE | 2025-08-05 03:40 | HP ---
HISTORY AND PHYSICAL DATE OF SERVICE: 08/04/2025 PRESENTING COMPLAINT: Nausea, vomiting, and abdominal pain. HISTORY OF PRESENT ILLNESS: A 79-year-old female with history of recurrent small bowel obstruction, pneumonia and osteoarthritis who presents with abdominal pain. The patient also complains of some nausea and vomiting. Abdominal pain localized to the lower quadrant. Last bowel movement was yesterday. X-ray has been done, which shows small bowel dilatation. The patient refused an NG tube placement. No fever or chills. No dysuria or hematuria. No chest pain. No palpitations or orthopnea. PAST MEDICAL HISTORY: * Recurrent small bowel obstruction. * Pneumonia. * Osteoarthritis. * Left radial fracture. PAST SURGICAL HISTORY: * Exploratory laparotomy. * Colon resection. * Bilateral total knee arthroplasty. * Left radial fracture repair. ALLERGIES: PENICILLIN. HOME MEDICATIONS: To be reviewed. SOCIAL HISTORY: Single. No alcohol, tobacco or illicit drug use. FAMILY HISTORY: Noncontributory. REVIEW OF SYSTEMS: Greater than 10 systems were reviewed. Negative except as documented above. PHYSICAL EXAMINATION: GENERAL: On examination, elderly female, awake, malnourished. VITAL SIGNS: Temperature 98.1, pulse 82, respiratory rate 24, blood pressure 174/108. EYES: No icterus. Pupils equal and reactive. HENT: No oral thrush seen. Moist oral mucosa. NECK: Supple. No JVD or thyromegaly. LUNGS: Good air entry. No rales. No rhonchi. CARDIOVASCULAR SYSTEM: S1 and S2 regular. No murmur heard. ABDOMEN: Full, soft. Bowel sounds absent. Mild tenderness in the lower quadrant. No organomegaly. CENTRAL NERVOUS SYSTEM: Awake, alert, oriented x3. No focal deficits. SKIN: No rashes. No itchiness. LYMPHATIC: No peripheral lymphadenopathy. BACK: No deformity. No pressure ulcer. MUSCULOSKELETAL: No joint swelling, erythema or tenderness LABORATORY DATA: Sodium 141, potassium 3.3, BUN 22, creatinine 0.6. WBC 10.8, hemoglobin 12.2, platelets 185. RADIOLOGY: X-ray of the abdomen ____ shows bowel dilatation. ASSESSMENT: A 79-year-old female presents with nausea, vomiting and abdominal pain. CURRENT PROBLEMS: Includes: * Recurrent small bowel obstruction. * Dehydration * Hyperkalemia. * Abdominal pain. * Hypertension. PLAN: * Admit patient to medical floor. * NPO status. * The patient refused an NG tube placement. * Start the patient on IV fluids. * General surgery evaluation. * Morphine as needed for pain. * Tylenol as needed for pair or fever. * Zofran as needed for nausea and vomiting. * Home medications will be reconciled. * The patient will be followed closely. TID: [id number] RECEIPT: [id number] MTDD
[2025-08-05 05:02] LABS: IMMATURE GRANULOCYTE ABSOLUTE 0.02 K/uL (0-1); NUCLEATED RED BLOOD CELLS 0.0 % (0.0-0.19); PLATELET COUNT (AUTO) 140 K/uL (130-400); RED BLOOD CELL COUNT(AUTO) 3.30 MIL/uL (4.00-5.50); RED CELL DISTRIBUTION WIDTH 12.3 % (11.0-15.5); WHITE BLOOD COUNT (AUTO) 5.2 K/uL (4.8-10.8)
[2025-08-05 05:15] LABS: CREATININE 0.6 mg/dL (0.5-1.0); GLOMERULAR FILTR. RATE CALC 91.0 mL/min (>90); GLUCOSE,RANDOM 76.0 mg/dL (70-105); SODIUM SERUM 141.0 mmol/L (136-145); UREA NITROGEN, BLOOD 23.0 mg/dL (7-18)
[2025-08-05] MEDS: ENOXAPARIN SODIUM 40 MG/0.4 ML SYRINGE SQ SCH (09:01)
--- NOTE | 2025-08-05 11:32 | PN ---
INFECTIOUS DISEASE PROGRESS NOTE Date of Service: Aug 05, 2025 SUBJECTIVE: This is a 79-year-old female patient who was seen and examined at bedside in room 420. Patient is awake and able to communicate needs well. Denying nausea or vomiting at this time. We will continue on IV fluids, D5 NS at 75. The abdomen is tender but soft on palpation. Patient is pending a General surgery evaluation for small bowel obstruction. PHYSICAL EXAM EYES: Anicteric. Pupils equal and reactive. HENT: No oral thrush seen, moist Oral mucosa. NECK: Supple, no JVD or thyromegaly. LUNGS: Good air entry. No rales, no rhonchi. CARDIOVASCULAR: S1, S2 regular. No murmur heard. ABDOMEN: Soft, non tender, bowel sounds present. Tenderness on palpation. CENTRAL NERVOUS SYSTEM: Awake, alert, oriented x 3. SKIN: No rashes, no swelling. LYMPHATICS: No peripheral lymphadenopathy. MUSCULOSKELETAL: No joint swelling, erythema or tenderness. EXTREMITIES: No cyanosis or clubbing. BACK: No deformity, no pressure ulcer. GENITOURINARY: No dysuria or hematuria. Vital Sign (Last 12 Hours) 08/05/25 08/05/25 08/05/25 00:00 04:00 08:00 Temp 97.9 97.9 98.1 Pulse 62 63 64 Resp 18 18 17 B/P (MAP) 121/53 125/59 145/79 Pulse Ox 96 93 99 O2 Delivery Room Air Room Air Room Air Intake & Output (last 24hrs) 08/04/25 08/04/25 08/05/25 15:00 23:00 07:00 Intake Total 150.0 ml Output Total 200 ml Balance -50.0 ml LABS: Laboratory: Test 08/05/25 04:04 Range/Units White Blood Count 5.2 # 4.8-10.8 K/uL Red Blood Count 3.30 L 4.00-5.50 MIL/uL Hemoglobin 10.3 L 12.0-16.0 g/dL Hematocrit 31.3 L 36-48 % Mean Corpuscular Volume 94.8 79-99 fL Mean Corpuscular Hemoglobin 31.2 27.0-33.0 pg Mean Corpuscular Hemoglobin Concent 32.9 32.0-36.0 g/dL Red Cell Distribution Width 12.3 11.0-15.5 % Platelet Count 140 130-400 K/uL Mean Platelet Volume 11.3 H 7.5-10.5 fL Immature Granulocyte % (Auto) 0.4 0-1 % Neutrophils (%) (Auto) 61.9 40.0-77.0 % Lymphocytes (%) (Auto) 30.0 21.0-51.0 % Monocytes (%) (Auto) 6.5 3.0-13.0 % Eosinophils (%) (Auto) 0.8 0.0-8.0 % Basophils (%) (Auto) 0.4 0.0-5.0 % Neutrophils # (Auto) 3.2 1.8-7.7 K/uL Lymphocytes # (Auto) 1.6 1.0-4.8 K/uL Monocytes # (Auto) 0.3 0.1-1.0 K/uL Eosinophils # (Auto) 0.04 0.00-0.70 K/uL Basophils # (Auto) 0.02 0.00-0.20 K/uL Absolute Immature Granulocyte (auto 0.02 0-1 K/uL Nucleated Red Blood Cells 0.0 0.0-0.19 % Sodium Level 141 136-145 mmol/L Potassium Level 3.7 3.5-5.1 mmol/L Chloride Level 103 101-111 mmol/L Carbon Dioxide Level 35 H 21-32 mmol/L Blood Urea Nitrogen 23 H 7-18 mg/dL Creatinine 0.6 0.5-1.0 mg/dL Glomerular Filtration Rate Calc 91 >90 mL/min Random Glucose 76 70-105 mg/dL Total Calcium 8.8 8.5-10.1 mg/dL Magnesium Level 1.90 1.80-2.40 mg/dL DIAGNOSTICS / RADIOLOGY: PATIENT: RAMIRO BORGES MR#: [id number] : 1945 SEX: F AGE: 79 LOCATION: [facility] ORDER 07 STATUS: REG ER REPORT#: [id number] SERVICE 06 REASON: bowel obstruction ORDERING PHYSICIAN: SHIRA KESSLER MD PROCEDURE: ABD 1VW - ABD 1VW EXAM: CR Abdomen, 2 View. CLINICAL HISTORY: bowel obstruction COMPARISON: None provided. FINDINGS: Abundant colonic fecal matter may reflect constipation. Dilated air-filled loops of small bowel measuring up to 5.1 cm may reflect an obstruction or ileus. Recommend CT imaging for further evaluation. IMPRESSION: 1. Dilated small bowel loops up to 5.1 cm, possibly reflecting obstruction or ileus. 2. CT imaging recommended for further evaluation. /[place] DICTATED BY: MARIA ESTHER SANFORD Jr., MD DATE: 08/04/25 1520 ASSESSMENT: Abdominal pain, POA. Recurrent Small-bowel obstruction. Dehydration. Hypokalemia, resolved. PLAN: Pending General surgery evaluation. Continue pain management. Continue p.o.. Continue antiemetics. Start Protonix 40 mg IV for GI prophylaxis. This case was reviewed and discussed with my supervising physician Dr. Butterfield and the above assessment and plan was formulated and agreed upon. ATTESTATION BY PHYSICIAN I have seen and examined the patient. I reviewed the documentation, medical decision making, and treatment plan as noted by the mid-level provider above. I agree with the findings and plan of care. CHRISTIANO BUTTERFIELD MD, [facility] Aug 05, 2025 11:32
[2025-08-06] VITALS (8 sets, daily range): BP systolic 105–158; BP diastolic 50–74; PULSE 55–76; RESP 17–18; TEMP 97.4–98.2; O2SAT 96–98
--- NOTE | 2025-08-06 19:19 | NUR ---
DCP: INITIAL ASSESSMENT Patient lives alone. She has [facility] but states they stopped going to see her and she is unsure of reason. No PHC services. Patient has rollator at home. She states she is able to complete ADLs independently and drives. PCP is Dr. Jadiel Marley. Pharmacy is [facility] in [place]. Patient voiced no safety concerns regarding returning home and states she has no difficulty with housing or buying food. DCP is home.
[2025-08-07] VITALS (7 sets, daily range): BP systolic 140–163; BP diastolic 74–90; PULSE 54–66; RESP 17–19; TEMP 97.4–98.4; O2SAT 94–97
[2025-08-07 05:19] LABS: NUCLEATED RED BLOOD CELLS 0.0 % (0.0-0.19); PLATELET COUNT (AUTO) 145.0 K/uL (130-400); RED BLOOD CELL COUNT(AUTO) 3.53 MIL/uL (4.00-5.50); RED CELL DISTRIBUTION WIDTH 12.3 % (11.0-15.5); WHITE BLOOD COUNT (AUTO) 6.1 K/uL (4.8-10.8)
[2025-08-07 05:30] LABS: CREATININE 0.6 mg/dL (0.5-1.0); GLOMERULAR FILTR. RATE CALC 91.0 mL/min (>90); GLUCOSE,RANDOM 93.0 mg/dL (70-105); SODIUM SERUM 141.0 mmol/L (136-145); UREA NITROGEN, BLOOD 6.0 mg/dL (7-18)
--- NOTE | 2025-08-07 07:45 | NUR ---
POTASSIUM REFUSAL PATIENT WITH POTASSIUM OF 2.8. PATIENT REFUSED IV POTASSIUM. PATIENT NPO PENDING PHYSICIAN CB.
[2025-08-07] MEDS ORDERED: DIATR MEGLU/DIATRIZOATE SODIUM 30 ML BOTTLE ONE (13:14)
[2025-08-07] MEDS: PoTASSium chl 10% ELIXIR 20MEQ 20 MEQ/15 ML UDCUP PO ONE (16:39)
--- NOTE | 2025-08-07 20:29 | PN ---
INFECTIOUS DISEASE PROGRESS NOTE Date of Service: Aug 07, 2025 SUBJECTIVE: This is a 79-year-old female patient who remains NPO and scheduled for a small bowel series for today. Patient's potassium level is 2.8 and per report patient has refused the IV coverage. We will cover with potassium elixir. No nausea or vomiting and continues on IV fluids, D5 NS at 75cc/hr. PHYSICAL EXAM EYES: Anicteric. Pupils equal and reactive. HENT: No oral thrush seen, moist Oral mucosa. NECK: Supple, no JVD or thyromegaly. LUNGS: Good air entry. No rales, no rhonchi. CARDIOVASCULAR: S1, S2 regular. No murmur heard. ABDOMEN: Soft, non tender, bowel sounds present. CENTRAL NERVOUS SYSTEM: Awake, alert, oriented x 3. SKIN: No rashes, no swelling. LYMPHATICS: No peripheral lymphadenopathy. MUSCULOSKELETAL: No joint swelling, erythema or tenderness. EXTREMITIES: No cyanosis or clubbing. BACK: No deformity, no pressure ulcer. GENITOURINARY: No dysuria or hematuria. Vital Sign (Last 12 Hours) 08/07/25 08/07/25 08/07/25 12:00 16:00 20:00 Temp 98.4 98.2 97.9 Pulse 62 66 61 Resp 17 17 18 B/P (MAP) 140/81 163/90 145/74 Pulse Ox 98 99 94 O2 Delivery Room Air Room Air Room Air FiO2 21 Intake & Output (last 24hrs) 08/06/25 08/06/25 08/07/25 14:59 22:59 06:59 Intake Total 0 ml 0 ml 900.0 ml Output Total 500 ml 300 ml Balance 0 ml -500 ml 600.0 ml LABS: Laboratory: Test 08/07/25 05:13 Range/Units White Blood Count 6.1 4.8-10.8 K/uL Red Blood Count 3.53 L 4.00-5.50 MIL/uL Hemoglobin 10.8 L 12.0-16.0 g/dL Hematocrit 33.0 L 36-48 % Mean Corpuscular Volume 93.5 79-99 fL Mean Corpuscular Hemoglobin 30.6 27.0-33.0 pg Mean Corpuscular Hemoglobin Concent 32.7 32.0-36.0 g/dL Red Cell Distribution Width 12.3 11.0-15.5 % Platelet Count 145 130-400 K/uL Mean Platelet Volume 10.5 7.5-10.5 fL Nucleated Red Blood Cells 0.0 0.0-0.19 % Sodium Level 141 136-145 mmol/L Potassium Level 2.8 *L 3.5-5.1 mmol/L Chloride Level 102 101-111 mmol/L Carbon Dioxide Level 34 H 21-32 mmol/L Blood Urea Nitrogen 6 L 7-18 mg/dL Creatinine 0.6 0.5-1.0 mg/dL Glomerular Filtration Rate Calc 91 >90 mL/min Random Glucose 93 70-105 mg/dL Total Calcium 8.6 8.5-10.1 mg/dL Magnesium Level 1.70 L 1.80-2.40 mg/dL DIAGNOSTICS / RADIOLOGY: PATIENT: RAMIRO BORGES MR#: [id number] : 1945 SEX: F AGE: 79 LOCATION: [facility] ORDER 1308 STATUS: [facility] REPORT#: [id number] SERVICE 1307 REASON: bowel obstruction ORDERING PHYSICIAN: SHIRA KESSLER MD PROCEDURE: ABD 1VW - ABD 1VW EXAM: CR Abdomen, 2 View. CLINICAL HISTORY: bowel obstruction COMPARISON: None provided. FINDINGS: Abundant colonic fecal matter may reflect constipation. Dilated air-filled loops of small bowel measuring up to 5.1 cm may reflect an obstruction or ileus. Recommend CT imaging for further evaluation. IMPRESSION: 1. Dilated small bowel loops up to 5.1 cm, possibly reflecting obstruction or ileus. 2. CT imaging recommended for further evaluation. /[place] DICTATED BY: MARIA ESTHER SANFORD Jr., MD DATE: 08/04/251519 ASSESSMENT: Abdominal pain, POA. Recurrent Small-bowel obstruction. Dehydration. Hypokalemia. PLAN: Continue pain management. Continue p.o.. Continue antiemetics. Continue GI prophylaxis. Hypokalemia protocol being followed. Scheduled for a small bowel series for today. This case was reviewed and discussed with my supervising physician Dr. Butterfield and the above assessment and plan was formulated and agreed upon. ATTESTATION BY PHYSICIAN I have seen and examined the patient. I reviewed the documentation, medical decision making, and treatment plan as noted by the mid-level provider above. I agree with the findings and plan of care. CHRISTIANO BUTTERFIELD MD, MIRTA L [facility] Aug 07, 2025 20:28
[2025-08-08 03:49] VITALS: BP 152/82; PULSE 66; RESP 18; TEMP 97.8
--- NOTE | 2025-08-08 04:00 | PN ---
INFECTIOUS DISEASE FOLLOWUP NOTE DATE OF SERVICE: 08/06/2015 SUBJECTIVE: The patient is seen and examined at bedside today. The patient has no fever, no chills. No nausea or vomiting. bowel gas. No dysuria or hematuria. . PHYSICAL EXAMINATION: GENERAL: ____. VITAL SIGNS: Temperature today 98.9. EYES: No icterus. Pupils equal and reactive. HENT: No oral thrush seen. Moist oral mucosa. NECK: Supple. No JVD or thyromegaly. LUNGS: Good air entry. No rales. No rhonchi. CARDIOVASCULAR: S1 and S2, regular. No murmur heard. ABDOMEN: Full, soft, nontender. Bowel sound is present. CENTRAL NERVOUS SYSTEM: Awake, alert, oriented x 3. No focal deficits. SKIN: No rashes, no itchiness. LYMPHATIC: No peripheral lymphadenopathy. BACK: No deformity. No pressure ulcer. HEMATOLOGIC: No bleeding or petechial lesions present. ASSESSMENT: A 79-year-old female with nausea, vomiting and abdominal pain. CURRENT PROBLEMS: Includes: * Recurrent small bowel obstruction. * Acute renal failure. * Dehydration. * Abdominal pain. * Severe malnutrition. PLAN: * The patient will be given . * Continue pain management. * Continue antiemetic. * Continue nutritional support. * Continue GI prophylaxis. * Monitor electrolytes. * The patient will be followed closely. TID: [id number] RECEIPT: [id number]
[2025-08-08 05:06] LABS: NUCLEATED RED BLOOD CELLS 0.0 % (0.0-0.19); PLATELET COUNT (AUTO) 153.0 K/uL (130-400); RED BLOOD CELL COUNT(AUTO) 3.38 MIL/uL (4.00-5.50); RED CELL DISTRIBUTION WIDTH 12.4 % (11.0-15.5); WHITE BLOOD COUNT (AUTO) 3.9 K/uL (4.8-10.8)
[2025-08-08 05:25] LABS: CREATININE 0.5 mg/dL (0.5-1.0); GLOMERULAR FILTR. RATE CALC 95.0 mL/min (>90); GLUCOSE,RANDOM 96.0 mg/dL (70-105); SODIUM SERUM 144.0 mmol/L (136-145); UREA NITROGEN, BLOOD 5.0 mg/dL (7-18)
[2025-08-08 08:00] VITALS: BP 139/79; PULSE 62; RESP 16; TEMP 97.6; O2SAT 98
--- NOTE | 2025-08-08 11:21 | NUR ---
PATIENT REPORT PATIENT IS ON NPO STATUS FOR SBO. PATIENT REPORTS "SHE HAS BEEN DRINKING WATER" DESPITE MD ORDERS. PATIENT HAS NOT BEEN PROVIDED WITH WATER FROM DAY OR WEB [employer].
[2025-08-08] MEDS ORDERED: PoTASSium chloRIDE 20MEQ ER 20 MEQ ERTAB PO PRN (11:30)
[2025-08-08 12:00] VITALS: BP 143/83; PULSE 63; RESP 16; TEMP 97.6
--- NOTE | 2025-08-08 14:49 | NUR ---
[facility] Consult: Patient assessed by wound healing team. Patient with no wounds or skin breakdown noted, blanchable redness to sacrum/coccyx. Assessment and recommendations provided to primary nurse. Education provided.
[2025-08-08 16:00] VITALS: BP 131/73; PULSE 81; RESP 16; TEMP 97.8
[2025-08-08] MEDS: MAGNESIUM 2GM PREMIX 50ML 50 ML IV PRN (16:28)
[2025-08-08] MEDS: PoTASSium chl 10% ELIXIR 20MEQ 20 MEQ/15 ML UDCUP PO PRN (18:02)
[2025-08-08 20:00] VITALS: BP 139/75; PULSE 61; RESP 17; TEMP 98.5; O2SAT 96
--- NOTE | 2025-08-08 21:21 | PN ---
INFECTIOUS DISEASE PROGRESS NOTE Date of Service: Aug 08, 2025 SUBJECTIVE: This is a 79-year-old female patient who was seen at bedside in room 420. Patient is having bowel movements after the small bowel series. Potassium level is still low at 3.1 and being replaced. Patient was Ceftin to take the potassium elixir form only. No nausea or vomiting. We will start patient on full liquid diet. PHYSICAL EXAM EYES: Anicteric. Pupils equal and reactive. HENT: No oral thrush seen, moist Oral mucosa. NECK: Supple, no JVD or thyromegaly. LUNGS: Good air entry. No rales, no rhonchi. CARDIOVASCULAR: S1, S2 regular. No murmur heard. ABDOMEN: Soft, non tender, bowel sounds present. CENTRAL NERVOUS SYSTEM: Awake, alert, oriented x 3. SKIN: No rashes, no swelling. LYMPHATICS: No peripheral lymphadenopathy. MUSCULOSKELETAL: No joint swelling, erythema or tenderness. EXTREMITIES: No cyanosis or clubbing. BACK: No deformity, no pressure ulcer. GENITOURINARY: No dysuria or hematuria. Vital Sign (Last 12 Hours) 08/08/25 08/08/25 08/08/25 12:00 16:00 20:00 Temp 97.5 97.9 98.4 Pulse 63 81 61 Resp 16 16 17 B/P (MAP) 143/83 131/73 139/75 Pulse Ox 98 97 96 O2 Delivery Room Air Room Air Room Air FiO2 21 Intake & Output (last 24hrs) 08/07/25 08/07/25 08/08/25 15:00 23:00 07:00 Intake Total 0 ml 850.0 ml 900.0 ml Output Total 250 ml Balance -250 ml 850.0 ml 900.0 ml LABS: Laboratory: Test 08/08/25 04:23 Range/Units White Blood Count 3.9 #L 4.8-10.8 K/uL Red Blood Count 3.38 L 4.00-5.50 MIL/uL Hemoglobin 10.5 L 12.0-16.0 g/dL Hematocrit 31.4 L 36-48 % Mean Corpuscular Volume 92.9 79-99 fL Mean Corpuscular Hemoglobin 31.1 27.0-33.0 pg Mean Corpuscular Hemoglobin Concent 33.4 32.0-36.0 g/dL Red Cell Distribution Width 12.4 11.0-15.5 % Platelet Count 153 130-400 K/uL Mean Platelet Volume 11.0 H 7.5-10.5 fL Nucleated Red Blood Cells 0.0 0.0-0.19 % Sodium Level 144 136-145 mmol/L Potassium Level 3.1 L 3.5-5.1 mmol/L Chloride Level 104 101-111 mmol/L Carbon Dioxide Level 33 H 21-32 mmol/L Blood Urea Nitrogen 5 L 7-18 mg/dL Creatinine 0.5 0.5-1.0 mg/dL Glomerular Filtration Rate Calc 95 >90 mL/min Random Glucose 96 70-105 mg/dL Total Calcium 8.7 8.5-10.1 mg/dL Magnesium Level 1.70 L 1.80-2.40 mg/dL DIAGNOSTICS / RADIOLOGY: PATIENT: RAMIRO BORGES MR#: [id number] : 1945 SEX: F AGE: 79 LOCATION: [facility] ORDER 1308 STATUS: [facility] REPORT#: [id number] SERVICE 1307 REASON: bowel obstruction ORDERING PHYSICIAN: SHIRA KESSLER MD PROCEDURE: ABD 1VW - ABD 1VW EXAM: CR Abdomen, 2 View. CLINICAL HISTORY: bowel obstruction COMPARISON: None provided. FINDINGS: Abundant colonic fecal matter may reflect constipation. Dilated air-filled loops of small bowel measuring up to 5.1 cm may reflect an obstruction or ileus. Recommend CT imaging for further evaluation. IMPRESSION: 1. Dilated small bowel loops up to 5.1 cm, possibly reflecting obstruction or ileus. 2. CT imaging recommended for further evaluation. /[place] DICTATED BY: MARIA ESTHER SANFORD Jr., MD DATE: 08/04/251519 ASSESSMENT: Abdominal pain, POA, resolving. Recurrent Small-bowel obstruction. Dehydration. Hypokalemia. PLAN: Start patient on full liquid diet. Continue pain management. Continue p.o.. Continue antiemetics. Continue GI prophylaxis. Hypokalemia protocol being followed. This case was reviewed and discussed with my supervising physician Dr. Butterfield and the above assessment and plan was formulated and agreed upon. ATTESTATION BY PHYSICIAN I have seen and examined the patient. I reviewed the documentation, medical decision making, and treatment plan as noted by the mid-level provider above. I agree with the findings and plan of care. CHRISTIANO BUTTERFIELD MD, MIRTA L [facility] Aug 08, 2025 21:21
[2025-08-09] VITALS: BP 132/78; PULSE 52; RESP 17; TEMP 98.2
[2025-08-09 04:00] VITALS: BP 154/71; PULSE 59; RESP 17; TEMP 98.2
[2025-08-09 04:25] LABS: NUCLEATED RED BLOOD CELLS 0.0 % (0.0-0.19); PLATELET COUNT (AUTO) 148.0 K/uL (130-400); RED BLOOD CELL COUNT(AUTO) 3.37 MIL/uL (4.00-5.50); RED CELL DISTRIBUTION WIDTH 12.6 % (11.0-15.5); WHITE BLOOD COUNT (AUTO) 5.5 K/uL (4.8-10.8)
[2025-08-09 04:51] LABS: CREATININE 0.6 mg/dL (0.5-1.0); GLOMERULAR FILTR. RATE CALC 91.0 mL/min (>90); GLUCOSE,RANDOM 92.0 mg/dL (70-105); SODIUM SERUM 142.0 mmol/L (136-145); UREA NITROGEN, BLOOD 3.0 mg/dL (7-18)
--- NOTE | 2025-08-09 06:10 | NUR ---
PATIENT DOES NOT WANT TO TAKE POTASSIUM AT THIS TIME. INFORMED HER THAT HER POTASSIUM WAS AT A 3 THIS MORNING, SHE SAID SHE DOES NOT WANT TO TAKE ANY MORE POTASSIUM BECAUSE IT "SAVAGE HOLES IN HER STOMACH".
[2025-08-09 07:58] VITALS: BP 153/86; PULSE 62; RESP 17
[2025-08-09 08:00] VITALS: O2SAT 95
--- NOTE | 2025-08-09 10:09 | NUR ---
MEDICATION REFUSAL PATIENT REFUSED AM DOSE OF ENOXAPARIN. POTASSIUM LEVEL OF 3.0. PATIENT REFUSING PO AND IV POTASSIUM. EDUCATION PROVIDED. PATIENT CONTINUES TO REFUSE.
[2025-08-09 11:37] VITALS: BP 148/75; PULSE 58; RESP 20; TEMP 98
--- NOTE | 2025-08-09 12:01 | HMCIMG ---
HISTORY: Rule out obstruction TECHNIQUE: Single and double contrast upper GI and small bowel follow-through was performed. No prior study is available for comparison. FINDINGS: Initial overhead revenue enforcement agent film shows a nonobstructive bowel gas pattern. No osseous abnormalities. Bilateral hip arthroplasty in place. There is levoscoliosis of the lumbar spine. The esophagus demonstrates normal peristalsis. No persistent areas of narrowing, dilation, mucosal abnormalities, or filling defects of the esophagus. There is no hiatal hernia. No gastroesophageal reflux. The stomach distends normally. No evidence of gastric ulcer disease. There are no masses or infiltrating lesions of the stomach. There is no deformity of the duodenal cap. The duodenal loop is normal. The jejunum and ileum are within normal limits. The terminal ileum and cecum are visualized and demonstrate no evidence of stricture, dilatation, or filling defects. In an hour and a half the contrast has reached right colon. IMPRESSION: Normal upper GI and small bowel follow-through.
--- NOTE | 2025-08-09 15:57 | NUR ---
PATIENT DISCHARGE PATIENT DISCHARGED TO HOME. PERIPHERAL IV REMOVED CATHETER INTACT. DISCHARGE INSTRUCTIONS GIVEN. PATIENT AWARE TO F/U WITH PCP. ALL QUESTIONS ANSWERED. PATIENT WAITING ON RIDE FOR PICKUP
--- NOTE | 2025-08-09 16:44 | NUR ---
PATIENT OFF UNIT PATIENT'S RIDE ON UNIT. PATIENT TAKEN DOWN BY WHEELCHAIR. ALL BELONGINGS SENT WITH PATIENT.
--- NOTE | 2025-08-09 16:59 | DS ---
Discharge Summary Hospital Course Potassium level is 3.0 today. Patient refusing to take anymore potassium coverage. Instructed her to eat fruits high in potassium at home. FINAL DISCHARGE DIAGNOSIS: Abdominal pain, POA, resolving. Recurrent Small-bowel obstruction. Dehydration. Hypokalemia. PLAN: Discharge patient to home today. Follow up with PCP in 3-5 days. Instructed patient to eat fruits high in potassium. Continue same home medications. This case was reviewed and discussed with my supervising physician Dr. Delarosa and the above assessment and plan was formulated and agreed upon. ERNA KEITH [employer] Aug 09, 2025 16:59
== END 2025-08-09 16:54 | disposition home or self-care (01) | DRG 388 ==
LOC: EDH 13:03 → EDHIP 14:21 → 4CH 14:35
PROVIDERS: ADMIT Internal Medicine Infectious Disease; ATTEND Internal Medicine Infectious Disease
DX: K56.699 Other intestinal obstruction unspecified as to partial versus complete obstruction (principal); E43 Unspecified severe protein-calorie malnutrition; N17.9 Acute kidney failure, unspecified; I10 Essential (primary) hypertension; Z68.1 Body mass index [BMI] 19.9 or less, adult; E86.0 Dehydration; E87.5 Hyperkalemia; E87.6 Hypokalemia; Z96.653 Presence of artificial knee joint, bilateral; Z87.01 Personal history of pneumonia (recurrent)
CPT/HCPCS: 36415; 74018; 74250; 80048; 83735; 85025; 85027; 99285; G0378; J1650; J1885; J2270; J2405; J2470; J3475; J3480; J7042; Q9963